=== PATIENT | male | born 1970 | race Caucasian/White ===

== ENCOUNTER → 2019-06-27 16:08 | Outpatient (BNVA) | payer OTHER, SELFPAY | PROVIDERS: Family Provider Emergency Medicine Emergency Medical Services; PCP Emergency Medicine Emergency Medical Services; Visit Provider Podiatrist Foot & Ankle Surgery | DX: S92.351A Displaced fracture of fifth metatarsal bone, right foot, initial encounter for closed fracture (principal); X58.XXXA Exposure to other specified factors, initial encounter | CPT/HCPCS: 73630 ==

== ENCOUNTER 2019-07-04 15:29 | Outpatient (CLI) | payer OTHER, SELFPAY | END 2019-07-04 15:30 | disposition home or self-care (01) | LOC: SPT 15:30 | PROVIDERS: Family Provider Emergency Medicine Emergency Medical Services; PCP Emergency Medicine Emergency Medical Services; Visit Provider Podiatrist Foot & Ankle Surgery | DX: M21.41 Flat foot [pes planus] (acquired), right foot (principal); M21.42 Flat foot [pes planus] (acquired), left foot | CPT/HCPCS: L3030 ==

== ENCOUNTER → 2019-07-24 08:14 | Outpatient (BNVA) | payer OTHER, SELFPAY | PROVIDERS: Family Provider Emergency Medicine Emergency Medical Services; PCP Emergency Medicine Emergency Medical Services; Visit Provider Specialist | DX: G43.711 Chronic migraine without aura, intractable, with status migrainosus (principal) | CPT/HCPCS: 64615; 73630; 99213; J0585 ==

== ENCOUNTER → 2019-10-18 07:45 | Outpatient (BNVA) | payer OTHER, SELFPAY | PROVIDERS: Family Provider Emergency Medicine Emergency Medical Services; PCP Emergency Medicine Emergency Medical Services; Visit Provider Specialist | DX: G43.711 Chronic migraine without aura, intractable, with status migrainosus (principal); Z87.891 Personal history of nicotine dependence | CPT/HCPCS: 64615; J0585 ==

== ENCOUNTER → 2020-01-17 07:49 | Outpatient (BNVA) | payer OTHER, SELFPAY | PROVIDERS: Family Provider Emergency Medicine Emergency Medical Services; PCP Emergency Medicine Emergency Medical Services; Visit Provider Specialist | DX: G43.711 Chronic migraine without aura, intractable, with status migrainosus (principal) | CPT/HCPCS: 64615; J0585 ==

== ENCOUNTER → 2020-06-19 13:44 | Outpatient (BNVA) | payer OTHER, SELFPAY | PROVIDERS: Family Provider Emergency Medicine Emergency Medical Services; PCP Emergency Medicine Emergency Medical Services; Visit Provider Specialist | DX: G43.711 Chronic migraine without aura, intractable, with status migrainosus (principal); Z87.891 Personal history of nicotine dependence | CPT/HCPCS: 64615; J0585 ==

== ENCOUNTER → 2020-09-11 09:55 | Outpatient (BNVA) | payer OTHER, SELFPAY | PROVIDERS: Family Provider Emergency Medicine Emergency Medical Services; PCP Emergency Medicine Emergency Medical Services; Visit Provider Specialist | DX: G43.711 Chronic migraine without aura, intractable, with status migrainosus (principal); Z87.891 Personal history of nicotine dependence | CPT/HCPCS: 64615; J0585 ==

== ENCOUNTER → 2020-12-18 08:23 | Outpatient (BNVA) | payer OTHER, SELFPAY | PROVIDERS: Family Provider Emergency Medicine Emergency Medical Services; PCP Emergency Medicine Emergency Medical Services; Visit Provider Specialist | DX: G43.709 Chronic migraine without aura, not intractable, without status migrainosus (principal) | CPT/HCPCS: 64615; J0585 ==

== ENCOUNTER → 2021-03-12 15:31 | Outpatient (BNVA) | payer OTHER, SELFPAY | PROVIDERS: Family Provider Emergency Medicine Emergency Medical Services; PCP Emergency Medicine Emergency Medical Services; Visit Provider Specialist | DX: G43.709 Chronic migraine without aura, not intractable, without status migrainosus (principal); Z87.891 Personal history of nicotine dependence | CPT/HCPCS: 64615; J0585 ==

== ENCOUNTER → 2021-06-25 08:23 | Outpatient (BNVA) | payer OTHER, SELFPAY | PROVIDERS: Family Provider Emergency Medicine Emergency Medical Services; PCP Emergency Medicine Emergency Medical Services; Visit Provider Specialist | DX: G43.711 Chronic migraine without aura, intractable, with status migrainosus (principal) | CPT/HCPCS: 64615; J0585 ==

== ENCOUNTER → 2021-09-28 08:14 | Outpatient (BNVA) | payer OTHER, SELFPAY | PROVIDERS: Family Provider Emergency Medicine Emergency Medical Services; PCP Emergency Medicine Emergency Medical Services; Visit Provider Surgery | DX: K92.1 Melena (principal); K21.9 Gastro-esophageal reflux disease without esophagitis | CPT/HCPCS: 99204 ==

== ENCOUNTER → 2021-10-26 08:03 | Outpatient (BNVA) | payer OTHER, SELFPAY | PROVIDERS: Family Provider Emergency Medicine Emergency Medical Services; PCP Emergency Medicine Emergency Medical Services; Visit Provider Specialist | DX: G43.711 Chronic migraine without aura, intractable, with status migrainosus (principal) | CPT/HCPCS: 64615; J0585 ==

== ENCOUNTER 2021-11-04 06:24 | Day surgery (SDC) | payer OTHER, SELFPAY ==
[2021-11-02 09:29] VITALS: BMI 36.0
[2021-11-04 06:48] VITALS: BP 132/85; PULSE 82; RESP 18; TEMP 36.6; O2SAT 97
--- NOTE | 2021-11-04 06:56 | ANES.PREANE2 ---
Pre-Anesthetic Assessment Height/Weight: Height 1.85 m Weight 123.831 kg Temp Pulse Resp BP Pulse Ox 97.9 F 82 18 132/85 97 11/04/21 06:48 11/04/21 06:48 11/04/21 06:48 11/04/21 06:48 11/04/21 06:48 Preop Diagnosis: upper gi symptoms Operation Date: 11/04/21 08:00 Proposed Procedures p EGD [id number]/[id number](Not Applicable) - Stew Perez MD s Colonoscopy(Not Applicable) - Stew Perez MD Familial anesthetic complications: None Was Beta Shonda taken within 24 hours: N/A Was Clonidine taken within 24 hours: N/A Last intake: Intake Last Liquid Date 11/03/21 Last Liquid Time 22:00 Last Solid Date 11/02/21 Last Solid Time 18:30 Social Tobacco (Chewing ) and No alcohol Exam alert, oriented x 3, clear to auscultation bilaterally and regular rate & rhythm Airway Submandibular: within normal limits Cervical ROM: within normal limits Mallampati: Class III Dentition: chipped Pulmonary Sleep Apnea CV/HEM None reported METS > 4 None reported Hepatic None reported GI Gastroesophageal Reflux Disease Severe GERD. Reflux on empty stomach Metabolic None reported Musc/skel Hx of stress fx Neuropsych Headache Anesthetic Plan ASA status: 3 (51 year old obese tobacco user with JOAQUIM not often using CPAP at night. ) Anesthesia: Anesthesia Evaluation and General Other: I discussed with the patient risks, goals, and benefits of MAC and general anesthesia. We discussed spectrum of MAC anesthesia including conversion to general as well as possibility of recall of intraoperative stimuli including discomfort/pain. Patient agrees to proceed with MAC. We discussed importance of CPAP compliance and various alternatives that the patient could explore to improve CPAP use. Risk of > 500 ml blood loss (7ml/kg in children): No Medications/Allergies Home Medications Medication Instructions Recorded Confirmed Last Taken Type Sole Support #1 ea 07/04/19 11/02/21 Unknown Rx atorvastatin 40 mg tablet (Lipitor) 40 mg PO DAILY 07/24/19 11/04/21 11/02/21 History cholecalciferol (vitamin D3) 100 4,000 unit PO DAILY 07/24/19 11/04/21 Unknown History mcg (4,000 unit) capsule (Vitamin D3) sumatriptan succinate 100 mg tablet 100 mg PO Q2H 07/24/19 11/04/21 Unknown History lactulose 10 gram/15 mL (15 mL) 15 ml PO BID 10 Days #300 ml 09/28/21 11/04/21 11/03/21 Rx oral solution pantoprazole 40 mg tablet,delayed 40 mg PO DAILY 09/28/21 11/04/21 11/02/21 History release (Protonix) Allergies Allergy/AdvReac Type Severity Reaction Status Date / Time Penicillins Allergy Severe ALGY-Anaphy Verified 11/04/21 06:44 laxis latex Allergy Unknown Unknown Verified 11/04/21 06:44 [facility] Anesthesia Medical History Chronic migraine without aura, intractable, with status migrainosus GERD (gastroesophageal reflux disease) Hyperlipidemia Surgical History History of amputation of finger History of appendectomy History of colonoscopy History of hip replacement, total History of left inguinal hernia repair 2x History of left knee surgery History of rotator cuff surgery Family History Other CAD (coronary artery disease) Cancer Diabetes Hypertension Denies family history of Stroke Social History Smoking and tobacco status: never smoked Quit status (tobacco): has quit using tobacco Year quit tobacco: 1996 Alcohol intake: current Alcohol intake frequency: few times a month History of recent travel: No Data Anesthesia Cardiac Studies: No Data to Display
[2021-11-04] MEDS: sodium chloride 0.9% 1,000 ML 30 ML IV ×2 (07:10→08:14)
--- NOTE | 2021-11-04 07:52 | P.HP_ITS ---
Same Day Surgery H&P Indication for Procedure/HPI DATE OF PROCEDURE: November 04, 2021 CHIEF COMPLAINT/INDICATIONFOR SURGICAL PROCEDURE: egd/colonoscopy PREOP DIAGNOSIS: upper gi symptoms PLANNED PROCEDURE: Operation Date: 11/04/21 08:00 Proposed Procedures p EGD [id number](Not Applicable) - Stew Perez MD s Colonoscopy(Not Applicable) - Stew Perez MD Medications/Allergies* Home Medications Medication Instructions Recorded Confirmed Type atorvastatin 40 mg tablet (Lipitor) 40 mg PO DAILY 07/24/19 11/04/21 History cholecalciferol (vitamin D3) 100 4,000 unit PO DAILY 07/24/19 11/04/21 History mcg (4,000 unit) capsule (Vitamin D3) sumatriptan succinate 100 mg tablet 100 mg PO Q2H 07/24/19 11/04/21 History pantoprazole 40 mg tablet,delayed 40 mg PO DAILY 09/28/21 11/04/21 History release (Protonix) Allergies/Adverse Reactions Allergy/AdvReac Type Severity Reaction Status Date / Time Penicillins Allergy Severe ALGY-Anaphy Verified 11/04/21 06:44 laxis latex Allergy Unknown Unknown Verified 11/04/21 06:44 Current Medications: Generic Name Dose Route Start Last Admin Trade Name Freq PRN Reason Stop Dose Admin Sodium Chloride 1,000 mls @ 30 mls/hr 11/04/21 06:45 11/04/21 07:10 Sodium Chloride 0.9% IV 11/05/21 06:44 30 mls/hr .Q24H JEAN PAUL Administration Pertinent History/Comorbid Conditions* Medical History (Updated 09/28/21 @ 08:34 by Stew Perez MD) Chronic migraine without aura, intractable, with status migrainosus GERD (gastroesophageal reflux disease) Hyperlipidemia Surgical History (Updated 09/28/21 @ 08:34 by Stew Perez MD) History of amputation of finger History of appendectomy History of colonoscopy History of hip replacement, total History of left inguinal hernia repair 2x History of left knee surgery History of rotator cuff surgery Family History (Updated 07/24/19 @ 08:47 by Karissa Centeno LPN) Diabetes CAD (coronary artery disease) Cancer Hypertension Denies family history of Stroke Social History Smoking and tobacco status: never smoked Quit status (tobacco): has quit using tobacco Year quit tobacco: 1996 Alcohol intake: current Alcohol intake frequency: few times a month History of recent travel: No Pertinent Exam Findings alert, oriented x 3 and regular rate & rhythm Recommendations Surgery/Procedure today Coding Level of Care Code Acute Sas Statistical Programmer for Selvin Templeton
[2021-11-04 08:36] VITALS: BP 133/77; PULSE 63; RESP 18; TEMP 36.3; O2SAT 92
[2021-11-04 08:46] VITALS: BP 135/75; PULSE 61; RESP 18; TEMP 36.6; O2SAT 93
--- NOTE | 2021-11-04 10:18 | ANE.PACU2 ---
Inpatient post-anesthesia follow up: Airway intact: Yes Vital signs: Temperature 97.8 F Pulse Rate 61 Respiratory Rate 18 Blood Pressure 135/75 Pulse Oximetry 93 Oxygen Delivery Me thod Room Air Oxygen Flow Rate Fraction of Inspir ed Oxygen Hydration adequate: Yes Nausea and vomiting: No Pain level: 1 Mental status: Baseline
== END 2021-11-04 09:03 | disposition home or self-care (01) ==
PROVIDERS: PCP Emergency Medicine Emergency Medical Services; Visit Provider Surgery
PROC: 0DJ08ZZ Inspection of Upper Intestinal Tract, Via Natural or Artificial Opening Endoscopic (ICD-10-PCS; CPT 43235; principal; 2021-11-04 08:00)
PROC: 0DJD8ZZ Inspection of Lower Intestinal Tract, Via Natural or Artificial Opening Endoscopic (ICD-10-PCS; CPT 45378; 2021-11-04 08:00)
DX: K92.1 Melena (principal); K21.9 Gastro-esophageal reflux disease without esophagitis; D12.0 Benign neoplasm of cecum; K44.9 Diaphragmatic hernia without obstruction or gangrene; K29.70 Gastritis, unspecified, without bleeding; K20.90 Esophagitis, unspecified without bleeding; K29.50 Unspecified chronic gastritis without bleeding
CPT/HCPCS: 43239; 45385; 88305; 88342; J2704; J7030

== ENCOUNTER → 2021-11-24 11:27 | Outpatient (BNVA) | payer OTHER, SELFPAY | PROVIDERS: PCP Emergency Medicine Emergency Medical Services; Visit Provider Surgery | DX: Z09 Encounter for follow-up examination after completed treatment for conditions other than malignant neoplasm (principal) | CPT/HCPCS: 99212 ==

== ENCOUNTER → 2022-02-04 14:51 | Outpatient (BNVA) | payer OTHER, SELFPAY | PROVIDERS: PCP Emergency Medicine Emergency Medical Services; Visit Provider Specialist | DX: G43.711 Chronic migraine without aura, intractable, with status migrainosus (principal) | CPT/HCPCS: 64615; J0585 ==

== ENCOUNTER → 2022-04-29 14:59 | Outpatient (BNVA) | payer OTHER, SELFPAY | PROVIDERS: PCP Emergency Medicine Emergency Medical Services; Visit Provider Specialist | DX: G43.711 Chronic migraine without aura, intractable, with status migrainosus (principal) | CPT/HCPCS: 64615; J0585 ==

== ENCOUNTER → 2022-08-26 13:58 | Outpatient (BNVA) | payer OTHER, SELFPAY | PROVIDERS: PCP Emergency Medicine Emergency Medical Services; Visit Provider Specialist | DX: G43.711 Chronic migraine without aura, intractable, with status migrainosus (principal) | CPT/HCPCS: 64615; J0585 ==

== ENCOUNTER → 2022-11-25 12:13 | Outpatient (BNVA) | payer OTHER, SELFPAY | PROVIDERS: PCP Emergency Medicine Emergency Medical Services; Visit Provider Specialist | DX: G43.711 Chronic migraine without aura, intractable, with status migrainosus (principal) | CPT/HCPCS: 64615; J0585 ==

== ENCOUNTER → 2023-11-08 12:58 | Outpatient (BNVA) | payer OTHER, SELFPAY | PROVIDERS: PCP Emergency Medicine Emergency Medical Services; Visit Provider Podiatrist Foot & Ankle Surgery | DX: M72.2 Plantar fascial fibromatosis; M24.572 Contracture, left ankle | CPT/HCPCS: 73630; 99203 ==

== ENCOUNTER → 2023-12-08 14:45 | Outpatient (BNVA) | payer OTHER, SELFPAY | PROVIDERS: PCP Emergency Medicine Emergency Medical Services; Visit Provider Podiatrist Foot & Ankle Surgery | DX: M72.2 Plantar fascial fibromatosis; M24.572 Contracture, left ankle | CPT/HCPCS: 99213 ==

== ENCOUNTER → 2024-05-25 14:00 | Outpatient (BNVA) | payer OTHER, SELFPAY | PROVIDERS: PCP Emergency Medicine Emergency Medical Services; Visit Provider Specialist | DX: G43.711 Chronic migraine without aura, intractable, with status migrainosus (principal) | CPT/HCPCS: 64615; J0585 ==

== ENCOUNTER → 2024-08-24 14:20 | Outpatient (BNVA) | payer OTHER, SELFPAY | PROVIDERS: PCP Emergency Medicine Emergency Medical Services; Visit Provider Specialist | DX: G43.711 Chronic migraine without aura, intractable, with status migrainosus (principal) | CPT/HCPCS: 64615; J0585; J9999 ==

== ENCOUNTER → 2025-02-18 14:40 | Outpatient (BNVA) | payer OTHER, SELFPAY | PROVIDERS: PCP Emergency Medicine Emergency Medical Services; Visit Provider Specialist | DX: G43.711 Chronic migraine without aura, intractable, with status migrainosus (principal) | CPT/HCPCS: 99212 ==

== ENCOUNTER → 2025-05-20 15:25 | Outpatient (BNVA) | payer OTHER, SELFPAY | PROVIDERS: PCP Emergency Medicine Emergency Medical Services; Visit Provider Specialist | DX: G43.711 Chronic migraine without aura, intractable, with status migrainosus (principal) | CPT/HCPCS: 99213 ==